=== PATIENT | male | born 1990 | race Caucasian/White ===

== ENCOUNTER 2022-11-27 04:38 | Emergency (ER) | payer BC ==
[~2022-11-27] VITALS: Ht 175.3 cm; Wt 62.0 kg
[2022-11-27 04:49] VITALS: BP 129/94
[2022-11-27] MEDS ORDERED: CHLORDIAZEPOXIDE 25MG CAPSULE PO ONE (06:00)
== END 2022-11-27 07:34 | disposition home or self-care (01) ==
LOC: ER 04:38
DX: Z04.89 Encounter for examination and observation for other specified reasons (principal); F10.239 Alcohol dependence with withdrawal, unspecified; F32.A Depression, unspecified; F41.9 Anxiety disorder, unspecified; F90.9 Attention-deficit hyperactivity disorder, unspecified type; F43.10 Post-traumatic stress disorder, unspecified; Z98.890 Other specified postprocedural states; Y90.9 Presence of alcohol in blood, level not specified
CPT/HCPCS: 99283